=== PATIENT | female | born 1945 | race Caucasian/White ===

== ENCOUNTER → 2017-06-17 | Outpatient (CLI) | payer OTHER ==
[~2017-06-17] MED LIST: ACTOS15 MG; ALLEGRA180 MG PO; AMITIZA 24 MCG24 MC1; AMITIZA 24 MCG24 MC1 PO; BACLOFEN20 MG; BACLOFEN20 MG PO; CALCIUM 500 +1 EAC5; ESTRACE1 MG PO; FISHOIL; FLAXSEED OIL1000 MG; GLUCOPHAGE1000 MG; GLUCOPHAGE1000 MG PO; JANUVIA100 MG; JANUVIA100 MG PO; LANTUS; LANTUS SC; LEVAQUIN; MULTIVITAMINS; NASOCORT; OXYTROL; PROPECIA; PROVERA2.5 MG PO; SIMVASTATIN20 MG PO; VITAMIN B-12100 MC1; VITAMIN C + RO500 MG; ZOCOR 20 MG TAB20 M1; [UNRECOGNIZED DRUG - OTHER]
== END ==
LOC: HYPER 07:13
DX: E11.622 Type 2 diabetes mellitus with other skin ulcer (principal); L98.411 Non-pressure chronic ulcer of buttock limited to breakdown of skin; L89.313 Pressure ulcer of right buttock, stage 3; G82.20 Paraplegia, unspecified; I87.2 Venous insufficiency (chronic) (peripheral); E11.36 Type 2 diabetes mellitus with diabetic cataract; I10 Essential (primary) hypertension; M19.90 Unspecified osteoarthritis, unspecified site; Z85.828 Personal history of other malignant neoplasm of skin; Z72.89 Other problems related to lifestyle

== ENCOUNTER → 2017-07-04 | Outpatient (CLI) | payer OTHER | LOC: HYPER 07:09 | DX: E11.622 Type 2 diabetes mellitus with other skin ulcer (principal); L89.313 Pressure ulcer of right buttock, stage 3; L89.893 Pressure ulcer of other site, stage 3; I87.2 Venous insufficiency (chronic) (peripheral); I10 Essential (primary) hypertension; E08.8 Diabetes mellitus due to underlying condition with unspecified complications; M19.90 Unspecified osteoarthritis, unspecified site; M81.0 Age-related osteoporosis without current pathological fracture; B35.1 Tinea unguium; G82.20 Paraplegia, unspecified; Z85.828 Personal history of other malignant neoplasm of skin ==

== ENCOUNTER → 2017-08-06 | Outpatient (CLI) | payer OTHER | LOC: HYPER 07-25 15:56 | DX: E11.622 Type 2 diabetes mellitus with other skin ulcer (principal); L98.411 Non-pressure chronic ulcer of buttock limited to breakdown of skin; L89.313 Pressure ulcer of right buttock, stage 3; G82.20 Paraplegia, unspecified; E11.36 Type 2 diabetes mellitus with diabetic cataract; I10 Essential (primary) hypertension; M19.90 Unspecified osteoarthritis, unspecified site; Z85.828 Personal history of other malignant neoplasm of skin ==